=== PATIENT | male | born 1985 ===

== ENCOUNTER 2017-12-01 19:33 | Emergency (ER) | payer BC ==
--- NOTE | 2017-12-01 20:38 | UC ---
Throat Pain/Nasal [place] HPI - HPI Summary HPI Summary: Pt complains of sore throat, post nasal drip, and sinus pain/pressure/ congestion for the last 5 days. He says he did have some body aches and fever 2- 3 days ago, but those symptoms have resolved. He has taken mucinex, dayquill, and nyquill with good relief at first - but no longer helping. Denies SOB, chest pain, abdominal pain, n/v/d/c - History of Current Complaint Chief Complaint: UCRespiratory Stated Complaint: SORE THROAT Hx Obtained From: Patient Onset/Duration: Gradual Onset Pain Intensity: 0 Cough: Nonproductive - Allergies/Home Medications Allergies/Adverse Reactions: Allergies Allergy/AdvReac Type Severity Reaction Status Date / Time doxycycline Allergy Unknown Unknown Verified 12/01/17 20:24 Reaction Details Home Medications: Home Medications Acetaminophen [Mapap] 1,000 mg PO ONCE PRN 12/01/17 [History Confirmed 12/01/17] D-Methorphan/PE/Acetaminophen [Vicks Dayquil Liquid] PRN 12/01/17 [History] Dm/PE/Acetaminophen/Doxylamine [Vicks Nyquil Severe Cold-Flu] PRN 12/01/17 [ History] guaiFENesin LIQ* [Robitussin*] PO ONCE PRN 12/01/17 [History] PMH/Surg Hx/FS Hx/Imm Hx Previously Healthy: Yes - Surgical History Surgical History: Yes Surgery Procedure, Year, and Place: PILONIDAL CYST REMOVED - Family History Known Family History: Positive: Unknown - Social History Alcohol Use: None Substance Use Type: None Smoking Status (MU): Current Every Day Smoker Type: eCigarettes Amount Used/How Often: VAPOR CIGARETTES Review of Systems Constitutional: Fever Skin: Negative Eyes: Negative ENT: Sore Throat, Nasal Discharge, Sinus Congestion, Sinus Pain/Tenderness Respiratory: Cough Cardiovascular: Negative Gastrointestinal: Negative Neurological: Negative Psychological: Negative All Other Systems Reviewed And Are Negative: Yes Physical Exam Triage Information Reviewed: Yes Appearance: Well-Appearing, No Pain Distress, Well-Nourished Vital Signs: Initial Vital Signs Temp 96.9 F 12/01/17 20:20 Pulse 61 12/01/17 20:20 Resp 18 12/01/17 20:20 BP 128/71 12/01/17 20:20 Pulse Ox 97 12/01/17 20:20 Vital Signs Reviewed: Yes Eyes: Positive: Conjunctiva Clear. Negative: Conjunctiva Inflamed, Discharge ENT: Positive: Hearing grossly normal, Pharynx normal, Nasal congestion, Nasal drainage, TMs normal, Sinus tenderness, Uvula midline. Negative: Pharyngeal erythema, TM bulging, TM dull, TM red, Tonsillar swelling, Tonsillar exudate, Hoarse voice Neck: Positive: Supple, Nontender, No Lymphadenopathy Respiratory: Positive: Chest non-tender, Lungs clear, Normal breath sounds, No respiratory distress, No accessory muscle use Cardiovascular: Positive: RRR, No Murmur, Pulses Normal Neurological: Positive: Alert Psychological: Positive: Age Appropriate Behavior Skin: Negative: rashes Throat Pain/Nasal Course/Dx - Course Course Of Treatment: Sinusitis. Cough - Differential Dx/Diagnosis Provider Diagnoses: Sinusitis. Cough Discharge - Discharge Plan Condition: Stable Disposition: HOME Prescriptions: Amoxicillin PO (*) [Amoxicillin 500 MG CAP*] 500 mg PO Q12H #20 cap Benzonatate CAP* [Tessalon 100 MG CAP*] 100 mg PO TID PRN #21 cap PRN Reason: Cough Patient Education Materials: Sinusitis (ED) Forms: *Work Release Referrals: No Primary Care Phys,NOPCP [Primary Care Provider] - Additional Instructions: If you develop a fever, shortness of breath, chest pain, new or worsening symptoms - please call your PCP or go to the ED.
[2017-12-01] MEDS ORDERED: Amoxicillin PO (*) 500 MG CAP PO ONE (21:09)
[2017-12-01] MEDS ORDERED: Benzonatate CAP* 100 MG PO ONE (21:30)
== END 2017-12-01 21:31 | disposition home or self-care (01) ==
LOC: UCEAST 19:33
DX: J32.9 Chronic sinusitis, unspecified (principal); R05 Cough; F17.290 Nicotine dependence, other tobacco product, uncomplicated; Z88.3 Allergy status to other anti-infective agents
CPT/HCPCS: 87502; 99202; A9270-GY; G0463